=== PATIENT | male | born 2000 | race Caucasian/White ===

== ENCOUNTER 2022-10-17 02:35 | Emergency (ER) | payer BC ==
[~2022-10-17] VITALS: Ht 165.1 cm; Wt 63.0 kg
[2022-10-17 02:35] VITALS: BP 117/89
--- NOTE | 2022-10-17 02:35 | NUR ---
ANDRES SCHAFFER TO CHAIR C
[2022-10-17 03:15] VITALS: BP 117/89
--- NOTE | 2022-10-17 03:15 | NUR ---
PATIENT BIB [facility] POLICE DEPT. PATIENT EXAMINED BY DR. BROWNING. PATIENT MEDICALLY CLEARED AND RELEASED IN CUSTODY IN STABLE CONDITION. ORIGINAL PRE-BOOK FORM GIVEN TO OFFICER SEBLE #[id number] Patient discharged with v/s stable. Written and verbal after care instructions given and explained. Patient verbalized understanding. Police with in custody. All questions addressed prior to discharge. Advised to follow up with PMD.
== END 2022-10-17 03:15 ==
LOC: MED 02:35
DX: F10.129 Alcohol abuse with intoxication, unspecified (principal); Z02.89 Encounter for other administrative examinations; Y90.9 Presence of alcohol in blood, level not specified
CPT/HCPCS: 99283